=== PATIENT | female | born 1995 | race Two or more races ===

== ENCOUNTER 2020-09-14 18:27 | Emergency (ER) | payer OTHER ==
[~2020-09-14] VITALS: Ht 162.6 cm; Wt 99.8 kg
[2020-09-14 18:39] VITALS: BP 153/85
[2020-09-14] MEDS ORDERED: ONDANSETRON ODT 4 MG TAB PO ONE (22:30)
[2020-09-14] MEDS ORDERED: ACETAMINOPHEN/CODEINE#3 (300/30mg) TAB PO ONE (22:30)
== END 2020-09-14 23:28 | disposition home or self-care (01) ==
LOC: EDBD 18:27 → ER 18:32
DX: S16.1XXA Strain of muscle, fascia and tendon at neck level, initial encounter (principal); G44.209 Tension-type headache, unspecified, not intractable; V43.62XA Car passenger injured in collision with other type car in traffic accident, initial encounter; Y93.89 Activity, other specified; Y92.488 Other paved roadways as the place of occurrence of the external cause; Y99.8 Other external cause status
CPT/HCPCS: 70450; 72125; 99285; Q0162